=== PATIENT | female | born 1965 | race Caucasian/White ===

== ENCOUNTER 2020-07-21 10:31 | Emergency (ER) | payer OTHER ==
[~2020-07-21] VITALS: Ht 167.6 cm; Wt 90.7 kg
[2020-07-21] MEDS ORDERED: ZOLOFT100 MG PO (10:36)
[2020-07-21] MEDS ORDERED: TRAMADOL 50 MG50 MG PO (13:38)
[2020-07-21] MEDS ORDERED: AMOXICILLIN875 MG PO (13:38)
[2020-07-21 13:45] VITALS: BP 119/72
== END 2020-07-21 13:45 | disposition home or self-care (01) ==
LOC: ER 10:31
DX: S02.2XXA Fracture of nasal bones, initial encounter for closed fracture (principal); S01.511A Laceration without foreign body of lip, initial encounter; Z79.899 Other long term (current) drug therapy; V49.9XXA Car occupant (driver) (passenger) injured in unspecified traffic accident, initial encounter; Y93.89 Activity, other specified; Y92.89 Other specified places as the place of occurrence of the external cause; Y99.8 Other external cause status